=== PATIENT | female | born 1935 | race Caucasian/White ===

== ENCOUNTER 2019-05-05 13:14 | Inpatient (IN) | payer OTHER ==
[~2019-05-05] VITALS: Ht 149.9 cm; Wt 71.1 kg
[~2019-05-05 13:14] MED LIST: ASPI-496 PO; LOSA100T14 PO; LOVA20TA2 PO
--- NOTE | 2019-05-05 13:30 | NUR ---
ASSIST RN: PT BIB [facility] FROM HOME FOR C/O DEHYDRATION, WEAKNESS & LOW BLOOD PRESSURE. PER FAMILY, PT HAD AN EPISODE OF "SHAKING, LIKE SHE WAS HYPOTHERMIC" THIS MORNING. PT HADN'T TAKEN HER BP MED [place], AND FAMILY NOTED HER BP WAS HIGH, SO SHE TOOK IT THEN (AROUND 1100). THEN PT STARTED FEELING WEAK AND WANTED TO GO TO BED, AND FAMILY NOTICED PT'S BP WAS LOW. BS WAS 154 (PT IS PRE-DIABETIC). EMS NOTED BP OF 76/51. PT WAS GIVEN 500ML NS EN ROUTE. NO 12-LEAD DONE BY EMS. PT IS CURRENTLY TAKING AMOXICILLIN FOR CHRONIC GINGIVITIS. [place] HERE VISITING FAMILY. ARRIVES TO ED A&OX4, VSS AT THIS TIME. ERP IN ROOM IMMEDIATELY. REPORTED TO BERRY PRIMARY RN.
[2019-05-05 13:50] LABS: MEAN CORPUSCULAR HEMOGLOBIN 32.3 pg (27.0-34.8); MEAN CORPUSCULAR HGB CONC 33.1 g/dL (32.4-35.8); MEAN CORPUSCULAR VOLUME 97.5 fL (80-100); MEAN PLATELET VOLUME 7.6 fL (7.4-10.4); PLATELET COUNT 312 x10^3/uL (130-400); RED BLOOD COUNT 3.78 x10^6/uL (3.82-5.3); RED CELL DISTRIBUTION WIDTH 11.9 % (9.6-15.2)
[2019-05-05 14:00] LABS: ANION GAP 8 mmol/L (5-15); CALCIUM 8.3 mg/dL (8.5-10.1); CHLORIDE 103 mmol/L (98-107); CREATININE 1.26 mg/dL (0.55-1.02)
[2019-05-05] MEDS ORDERED: SODIUM CHLORIDE 0.9%, 500ML IVBOLUS ONE (14:00)
[2019-05-05] MEDS ORDERED: ONDANSETRON 2MG/ML, 2ML ONE (14:14)
[2019-05-05] MEDS ORDERED: POTASSIUM CHLORIDE 20 MEQ TAB.ER.PRT ONE (14:14)
[2019-05-05] MEDS ORDERED: POTASSIUM CHLORIDE 20 MEQ TAB.ER.PRT PO ONE ×2 (14:30→16:30)
[2019-05-05] MEDS ORDERED: ONDANSETRON 2MG/ML, 2ML IVPush ONE (14:30)
[2019-05-05 14:54] LABS: MD YES
[2019-05-05 15:03] LABS: <PLATELET ESTIMATE> ADEQUATE; <RBC MORPHOLOGY> NORMAL; BANDS%(MANUAL) 20 % (0-7); LYMPHS% (MANUAL) 4 % (22-44); METAMYELOCYTES# (MANUAL) 0.15 x10^3/uL (0-0); METAMYELOCYTES% (MANUAL) 1 % (0-1); MONOS% (MANUAL) 2 % (2-9); SEG#(MANUAL) 10.95 x10^3/uL (1.8-6.8); SEGS% (MANUAL) 73 % (42-75)
[2019-05-05 15:04] LABS: <PLT MORPHOLOGY> NORMAL PLT MORPH
--- NOTE | 2019-05-05 15:06 | NUR ---
TWO ATTEMPTS TO CATH PT FOR URINE UNSUCCESSFUL ERP TO HOLD FURTHER FLUID RE CHEST XRAY AND CONCERNS FOR FLUID RETENTION IN THE LUNGS
[2019-05-05] MEDS ORDERED: SODIUM CHLORIDE 0.9% 1,000ML IVBOLUS ONE (15:30)
[2019-05-05] MEDS ORDERED: CEFTRIAXONE PMX 1GM/50ML 50 ML IVPB ONE (15:30)
[2019-05-05] MEDS ORDERED: SODIUM CHLORIDE FLUSH 10ML SYR IVF ONE (15:30)
[2019-05-05] MEDS ORDERED: DOXYCYCLINE 100 MG in DEXTROSE 5% 250 ML IV ONE (16:00)
[2019-05-05] MEDS ORDERED: PROMETHAZINE 25 MG/ML, 1ML IM PRN (16:30)
[2019-05-05] MEDS ORDERED: hydrALAzine 20 MG/ML, 1ML IVPush PRN (16:30)
[2019-05-05] MEDS ORDERED: LABETALOL 5MG/ML, 20ML IVPush PRN (16:30)
[2019-05-05] MEDS ORDERED: ONDANSETRON 2MG/ML, 2ML IVPush PRN (16:30)
--- NOTE | 2019-05-05 16:39 | NUR ---
REPORT CALLED TO THE FLOOR
--- NOTE | 2019-05-05 16:40 | NUR ---
REPORT CALLED TO THE FLOOR
[2019-05-05 16:55] LABS: RAPID INFLUENZA A Negative (Negative); RAPID INFLUENZA B Negative (Negative)
[2019-05-05 17:23] VITALS: BP 104/53
[2019-05-05] MEDS: SODIUM CHLORIDE 0.9% 1,000 ML IV SCH ×4 (18:08→22:13)
[2019-05-05] MEDS: AMPICILLIN/SULBACTAM 1,500 MG in SODIUM CHLORIDE 0.9% 50 ML IV SCH ×2 (18:13→23:18)
[2019-05-05] MEDS: HEPARIN 5,000 UNITS/ML, 1ML SQ SCH (18:21)
[2019-05-05] MEDS: LOVASTATIN 20 MG TABLET PO SCH (19:51)
[2019-05-05 20:29] VITALS: BP 108/56
[2019-05-05 21:24] LABS: CULTURE INDICATED? YES; MICROSCOPIC INDICATED
[2019-05-06] MEDS: ACETAMINOPHEN 325 MG TABLET PO PRN ×2 (00:40→22:53)
[2019-05-06 01:00] VITALS: BP 94/61
[2019-05-06] MEDS: HEPARIN 5,000 UNITS/ML, 1ML SQ SCH ×3 (01:30→18:23)
[2019-05-06] MEDS: SODIUM CHLORIDE 0.9% 1,000 ML IV SCH (03:58)
[2019-05-06] MEDS: DOXYCYCLINE 100 MG in DEXTROSE 5% 250 ML IV SCH ×2 (04:30→16:30)
[2019-05-06] MEDS: AMPICILLIN/SULBACTAM 1,500 MG in SODIUM CHLORIDE 0.9% 50 ML IV SCH ×3 (05:30→18:23)
[2019-05-06 06:08] LABS: MEAN CORPUSCULAR HEMOGLOBIN 32.6 pg (27.0-34.8); MEAN CORPUSCULAR HGB CONC 33.5 g/dL (32.4-35.8); MEAN CORPUSCULAR VOLUME 97.5 fL (80-100); MEAN PLATELET VOLUME 7.5 fL (7.4-10.4); PLATELET COUNT 235 x10^3/uL (130-400); RED BLOOD COUNT 3.23 x10^6/uL (3.82-5.3); RED CELL DISTRIBUTION WIDTH 12.1 % (9.6-15.2)
[2019-05-06 06:16] LABS: ALBUMIN 2.3 g/dL (3.4-5.0); ANION GAP 7 mmol/L (5-15); CALCIUM 7.4 mg/dL (8.5-10.1); CHLORIDE 108 mmol/L (98-107)
[2019-05-06 06:20] LABS: ALANINE AMINOTRANSFERASE 16 U/L (12-78); ALKALINE PHOSPHATASE 51 U/L (45-117); BILIRUBIN,TOTAL 0.4 mg/dL (0.2-1.0); CREATININE 1.12 mg/dL (0.55-1.02)
[2019-05-06 06:28] LABS: MD YES
[2019-05-06 06:29] LABS: BAND#(MANUAL) 2.52 x10^3/uL; BANDS%(MANUAL) 15 % (0-7); LYMPH#(MANUAL) 0.67 x10^3/uL (1-3.4); LYMPHS% (MANUAL) 4 % (22-44); SEG#(MANUAL) 13.61 x10^3/uL (1.8-6.8); SEGS% (MANUAL) 81 % (42-75)
[2019-05-06 06:30] LABS: <PLATELET ESTIMATE> ADEQUATE; <PLT MORPHOLOGY> NORMAL PLT MORPH; <RBC MORPHOLOGY> NORMAL
[2019-05-06 07:35] VITALS: BP 101/61
[2019-05-06] MEDS: ASPIRIN 81 MG TABLET EC PO SCH (08:32)
[2019-05-06] MEDS: LACTATED RINGERS 1,000 ML IV SCH (08:32)
[2019-05-06] MEDS ORDERED: ONDANSETRON ODT 4 MG ONE (11:26)
[2019-05-06] MEDS ORDERED: ONDANSETRON ODT 4 MG PO PRN (12:00)
[2019-05-06 14:04] VITALS: BP 117/64
[2019-05-06] MEDS ORDERED: LACTOBACILLUS CHEW TABLET ONE (16:28)
[2019-05-06] MEDS: LACTOBACILLUS CHEW TABLET PO SCH ×2 (16:31→20:40)
[2019-05-06 18:47] VITALS: BP 143/62
[2019-05-06] MEDS: LOVASTATIN 20 MG TABLET PO SCH (20:40)
[2019-05-07] MEDS: AMPICILLIN/SULBACTAM 1,500 MG in SODIUM CHLORIDE 0.9% 50 ML IV SCH ×4 (00:35→18:17)
[2019-05-07] MEDS: HEPARIN 5,000 UNITS/ML, 1ML SQ SCH ×3 (01:43→18:17)
[2019-05-07 03:30] VITALS: BP 156/73
[2019-05-07] MEDS: DOXYCYCLINE 100 MG in DEXTROSE 5% 250 ML IV SCH ×2 (04:04→15:38)
[2019-05-07] MEDS: LACTATED RINGERS 1,000 ML IV SCH (04:04)
[2019-05-07 06:04] LABS: BASOPHILS # (AUTO) 0.07 x10^3/uL (0-0.1); BASOPHILS % (AUTO) 1 % (0-1); EOSINOPHILS # (AUTO) 0.19 x10^3/uL (0-0.4); EOSINOPHILS % (AUTO) 2 % (1-7); LYMPHOCYTES # (AUTO) 0.83 x10^3/uL (1-3.4); LYMPHOCYTES % (AUTO) 10 % (22-44); MD NO; MEAN CORPUSCULAR HEMOGLOBIN 32.2 pg (27.0-34.8); MEAN CORPUSCULAR HGB CONC 33.4 g/dL (32.4-35.8); MEAN CORPUSCULAR VOLUME 96.3 fL (80-100); MEAN PLATELET VOLUME 8.4 fL (7.4-10.4); MONOCYTES % (AUTO) 5 % (2-9); NEUTROPHILS # (AUTO) 6.96 x10^3/uL (1.8-6.8); NEUTROPHILS % (AUTO) 82 % (42-75); PLATELET COUNT 189 x10^3/uL (130-400); RED CELL DISTRIBUTION WIDTH 11.6 % (9.6-15.2)
[2019-05-07 06:11] LABS: ALBUMIN 2.5 g/dL (3.4-5.0); ANION GAP 9 mmol/L (5-15); CALCIUM 7.5 mg/dL (8.5-10.1); CHLORIDE 103 mmol/L (98-107)
[2019-05-07 06:15] LABS: ALANINE AMINOTRANSFERASE 30 U/L (12-78); ALKALINE PHOSPHATASE 65 U/L (45-117); BILIRUBIN,TOTAL 0.5 mg/dL (0.2-1.0); TOTAL PROTEIN 5.3 g/dL (6.4-8.2)
[2019-05-07 08:36] VITALS: BP 138/65
[2019-05-07] MEDS: LACTOBACILLUS CHEW TABLET PO SCH ×3 (09:19→20:11)
[2019-05-07] MEDS: ASPIRIN 81 MG TABLET EC PO SCH (09:19)
[2019-05-07 15:14] VITALS: BP 169/77
[2019-05-07 19:10] VITALS: BP 147/66
[2019-05-07] MEDS: ACETAMINOPHEN 325 MG TABLET PO PRN (20:14)
[2019-05-07] MEDS: LOVASTATIN 20 MG TABLET PO SCH (20:14)
[2019-05-08] MEDS: AMPICILLIN/SULBACTAM 1,500 MG in SODIUM CHLORIDE 0.9% 50 ML IV SCH ×3 (00:39→12:30)
[2019-05-08] MEDS: HEPARIN 5,000 UNITS/ML, 1ML SQ SCH ×2 (01:38→10:30)
[2019-05-08 02:00] VITALS: BP 150/70
[2019-05-08] MEDS: DOXYCYCLINE 100 MG in DEXTROSE 5% 250 ML IV SCH (04:44)
[2019-05-08 05:35] LABS: BASOPHILS # (AUTO) 0.05 x10^3/uL (0-0.1); BASOPHILS % (AUTO) 1 % (0-1); EOSINOPHILS # (AUTO) 0.42 x10^3/uL (0-0.4); EOSINOPHILS % (AUTO) 6 % (1-7); LYMPHOCYTES # (AUTO) 1.45 x10^3/uL (1-3.4); LYMPHOCYTES % (AUTO) 20 % (22-44); MD NO; MEAN CORPUSCULAR HEMOGLOBIN 32.5 pg (27.0-34.8); MEAN CORPUSCULAR HGB CONC 33.5 g/dL (32.4-35.8); MEAN PLATELET VOLUME 8.2 fL (7.4-10.4); MONOCYTES % (AUTO) 7 % (2-9); NEUTROPHILS % (AUTO) 67 % (42-75); PLATELET COUNT 185 x10^3/uL (130-400); RED BLOOD COUNT 3.26 x10^6/uL (3.82-5.3); RED CELL DISTRIBUTION WIDTH 11.8 % (9.6-15.2)
[2019-05-08 05:44] LABS: ALBUMIN 2.4 g/dL (3.4-5.0); ANION GAP 9 mmol/L (5-15); CALCIUM 7.6 mg/dL (8.5-10.1); CHLORIDE 100 mmol/L (98-107)
[2019-05-08 05:47] LABS: ALANINE AMINOTRANSFERASE 29 U/L (12-78); ALKALINE PHOSPHATASE 70 U/L (45-117); BILIRUBIN,TOTAL 0.4 mg/dL (0.2-1.0); CREATININE 0.71 mg/dL (0.55-1.02); TOTAL PROTEIN 5.3 g/dL (6.4-8.2)
[2019-05-08] MEDS: ASPIRIN 81 MG TABLET EC PO SCH (08:45)
[2019-05-08] MEDS: LACTOBACILLUS CHEW TABLET PO SCH (08:45)
[2019-05-08] MEDS ORDERED: POTASSIUM CHLORIDE 20 MEQ TAB.ER.PRT PO ONE (09:00)
[2019-05-08] MEDS ORDERED: MAGNESIUM SULFATE PMX 4GM/100M 100 ML IV ONE (09:00)
[2019-05-08 09:23] VITALS: BP 127/78
[2019-05-08] MEDS ORDERED: AMOX1TAB64 PO (09:28)
[2019-05-08] MEDS ORDERED: DOXY100T PO (09:28)
[2019-05-08 09:46] VITALS: BP 138/60
[2019-05-08 12:25] VITALS: BP 166/86
== END 2019-05-08 15:52 | disposition home or self-care (01) | DRG 871 ==
LOC: ED 15:09 → EDIP 15:42 → 4EST 17:13 → 4WST 05-06 05:00 → DCLOUNGE 05-08 15:45
PROVIDERS: ADMIT Internal Medicine; ATTEND Internal Medicine
PROC: 0T9B70Z Drainage of Bladder with Drainage Device, Via Natural or Artificial Opening (ICD-10-PCS; principal; 2019-05-05)
DX: A41.9 Sepsis, unspecified organism (principal); J18.9 Pneumonia, unspecified organism; N17.9 Acute kidney failure, unspecified; E11.65 Type 2 diabetes mellitus with hyperglycemia; E78.5 Hyperlipidemia, unspecified; E87.6 Hypokalemia; I10 Essential (primary) hypertension; K05.10 Chronic gingivitis, plaque induced; R65.20 Severe sepsis without septic shock; G90.9 Disorder of the autonomic nervous system, unspecified; Z83.3 Family history of diabetes mellitus
CPT/HCPCS: 36415; 71045; 80048; 80053; 81001; 82040; 83036; 83605; 83735; 83880; 84100; 84145; 85025; 87040; 87077; 87086; 87186; 87400; 93005; 96365; 96375; G0378; J1644; J2405; J7060; Q0162; J0295; J3475; J7030; J7040; J7120

== ENCOUNTER 2020-02-16 13:19 | Emergency (ER) | payer OTHER ==
[~2020-02-16] VITALS: Ht 149.9 cm; Wt 66.4 kg
[~2020-02-16 13:19] MED LIST changes: +AMOX1TAB64 PO; +DOXY100T PO
--- NOTE | 2020-02-16 14:17 | NUR ---
BREAK RN NOTE: PT PRESENTS TO ED WITH C/O NAUSEA X 1 WEEK. PT REFERRED TO ED FOR ULTRASOUND AFTER BEING SEEN AT [facility] AND INSURANCE DENIED BY OP IMAGING. DENIES VOMITING, DENIES PAIN, DENIES OTHER SX. PT PLACED ON ALL MONITORS, NSR ON PETROLEUM SUPPLY SPECIALIST WITH NO ECTOPY NOTED. FAMILY AT BEDSIDE. PT A&O, RESPS EVEN AND UNLABORED, NADN.
--- NOTE | 2020-02-16 14:18 | NUR ---
REPORT GIVEN TO JAQUELINE SHRESTHA.
[2020-02-16 14:21] LABS: ALBUMIN 3.3 g/dL (3.4-5.0); ANION GAP 9 mmol/L (5-15); BASOPHILS % (AUTO) 1 % (0-1); CALCIUM 8.7 mg/dL (8.5-10.1); CHLORIDE 91 mmol/L (98-107); EOSINOPHILS % (AUTO) 1 % (1-7); LYMPHOCYTES % (AUTO) 19 % (22-44); MEAN CORPUSCULAR HEMOGLOBIN 32.3 pg (27.0-34.8); MEAN CORPUSCULAR HGB CONC 34.4 g/dL (32.4-35.8); MONOCYTES % (AUTO) 7 % (2-9); NEUTROPHILS % (AUTO) 72 % (42-75); PLATELET COUNT 328 x10^3/uL (130-400); RED BLOOD COUNT 3.73 x10^6/uL (3.82-5.3); RED CELL DISTRIBUTION WIDTH 14.3 % (9.6-15.2)
[2020-02-16 14:24] LABS: ALANINE AMINOTRANSFERASE 16 U/L (12-78); ALKALINE PHOSPHATASE 80 U/L (45-117); BILIRUBIN,TOTAL 0.9 mg/dL (0.2-1.0); CREATININE 0.93 mg/dL (0.55-1.02); TOTAL PROTEIN 6.6 g/dL (6.4-8.2)
[2020-02-16 14:34] LABS: MD NO
[2020-02-16 15:01] VITALS: BP 144/54
[2020-02-16 15:47] LABS: TROPONIN I 0.015 ng/mL (0.000-0.045)
== END 2020-02-16 16:12 | disposition home or self-care (01) ==
LOC: ED 14:36
DX: E87.1 Hypo-osmolality and hyponatremia (principal); R11.2 Nausea with vomiting, unspecified; R10.9 Unspecified abdominal pain; I10 Essential (primary) hypertension; E11.9 Type 2 diabetes mellitus without complications; Z90.89 Acquired absence of other organs; Z87.891 Personal history of nicotine dependence
CPT/HCPCS: 36415; 71045; 76700; 80053; 83690; 84484; 85025; 93005; 99285